=== PATIENT | female | born 1975 | race African-American/Black ===

== ENCOUNTER 2020-11-15 22:52 | Emergency (ER) | payer OTHER ==
[2020-11-15 23:06] VITALS: TEMP 98.4; BMI 44.5
[2020-11-16 00:39] LABS: BASO % 0.8 % (0-2.0); EOS % 2.5 % (0-4.5); HEMATOCRIT 39.8 % (32.4-45.2); LYMPH % 22.6 % (8-40); MCH 25.8 pg (25.7-33.7); MCHC 32.7 g/dl (32.0-36.0); MEAN CELL VOLUME 78.9 fl (80-96); MEAN PLT VOLUME 10.3 fl (7.5-11.1); MONO % 12.7 % (3.8-10.2); NEUT % 61.4 % (42.8-82.8); PLATELET COUNT 188 K/MM3 (134-434); RBC 5.04 M/mm3 (3.60-5.2); RDW 14.4 % (11.6-15.6); WHITE BLOOD COUNT 7.8 K/mm3 (4.0-10.0)
[2020-11-16 00:50] LABS: INR 0.94 (0.83-1.09); PROTHROMBIN TIME (PATIENT) 11.6 SEC (9.7-13.0)
[2020-11-16 00:52] LABS: ACTIVATED PTT 33.6 SECONDS (25.2-36.5)
[2020-11-16 00:54] LABS: CHLORIDE 103 mmol/L (98-107); POTASSIUM 3.7 mmol/L (3.5-5.1); SODIUM 139 mmol/L (136-145)
[2020-11-16 00:57] LABS: ALBUMIN 3.4 g/dl (3.4-5.0); ANION GAP 3 MMOL/L (8-16); BLOOD UREA NITROGEN 28.6 mg/dL (7-18); CALCIUM 9.3 mg/dL (8.5-10.1); CO2 33 mmol/L (21-32); GLUCOSE,RANDOM 105 mg/dL (74-106); MAGNESIUM 2.2 mg/dL (1.8-2.4)
[2020-11-16 01:00] LABS: CREATININE 1.6 mg/dL (0.55-1.3); SGOT/AST 19 U/L (15-37); SGPT/ALT 29 U/L (13-61)
[2020-11-16 01:01] LABS: BILIRUBIN,TOTAL 0.2 mg/dL (0.2-1)
[2020-11-16 01:03] LABS: TOT PROT 6.9 g/dl (6.4-8.2)
[2020-11-16 01:04] LABS: ALK PHOS 73 U/L (45-117)
[2020-11-16 04:03] VITALS: BP 126/84; PULSE 76
== END 2020-11-16 04:03 | disposition home or self-care (01) ==
LOC: JER 22:52
DX: R07.9 Chest pain, unspecified (principal)
CPT/HCPCS: 36415; 71046-TC-FY; 80053; 82550; 82553; 83735; 84484; 85025; 85610; 85730; 93005; 93010; 99285-25

== ENCOUNTER 2021-12-04 15:28 | Emergency (ER) | payer OTHER ==
[2021-12-04 15:38] VITALS: BP 134/87; PULSE 76; TEMP 98; BMI 46.0
[2021-12-04] MEDS ORDERED: ACETAMINOPHEN 500 MG TABLET (FP) PO ONE (18:12)
[2021-12-04] MEDS ORDERED: ACETAMINOPHEN 500 MG TABLET (FP) ONE (18:17)
== END 2021-12-04 19:11 | disposition home or self-care (01) ==
LOC: JERFT 15:28
DX: M79.604 Pain in right leg (principal); M79.605 Pain in left leg; G89.29 Other chronic pain
CPT/HCPCS: 99283-25

== ENCOUNTER 2022-06-02 09:53 | Emergency (ER) | payer OTHER ==
[2022-06-02 10:54] VITALS: BP 126/82; PULSE 87; RESP 18; TEMP 98; BMI 42.9
[2022-06-02] MEDS ORDERED: METOCLOPRAMIDE HCL INJECTION 10 MG/2 ML VIAL IVPB ONE (12:15)
[2022-06-02] MEDS ORDERED: ACETAMINOPHEN 1000 MG/100 ML BAG IVPB ONE (12:15)
[2022-06-02] MEDS ORDERED: SODIUM CHLORIDE 1,000 ML IV STA (12:15)
[2022-06-02] MEDS ORDERED: ACETAMINOPHEN INJECTION 100 ML IVPB ONE (12:26)
[2022-06-02] MEDS ORDERED: METOCLOPRAMIDE HCL INJECTION 10 MG/2 ML VIAL ONE (12:26)
[2022-06-02 13:32] LABS: BASO % 0.7 % (0-2.0); EOS % 1.2 % (0-4.5); HEMATOCRIT 40.2 % (32.4-45.2); HEMOGLOBIN 13.2 GM/dL (10.7-15.3); LYMPH % 22.1 % (8-40); MCH 26.5 pg (25.7-33.7); MCHC 32.9 g/dl (32.0-36.0); MEAN CELL VOLUME 80.5 fl (80-96); MEAN PLT VOLUME 9.9 fl (7.5-11.1); MONO % 8.2 % (3.8-10.2); NEUT % 67.8 % (42.8-82.8); PLATELET COUNT 233 10^3/uL (134-434); RBC 4.99 M/mm3 (3.60-5.2); RDW 13.2 % (11.6-15.6); WHITE BLOOD COUNT 8.3 K/mm3 (4.0-10.0)
[2022-06-02 13:39] LABS: INR 1.03 (0.83-1.09); PROTHROMBIN TIME (PATIENT) 11.8 SEC (9.7-13.0)
[2022-06-02 13:46] LABS: CALCIUM 9.4 mg/dL (8.5-10.1)
[2022-06-02 13:47] LABS: ALBUMIN 3.7 g/dl (3.4-5.0); BLOOD UREA NITROGEN 19.8 mg/dL (7-18)
[2022-06-02 13:50] LABS: CREATININE 1.4 mg/dL (0.55-1.3)
[2022-06-02 13:52] LABS: BILIRUBIN,TOTAL 0.3 mg/dL (0.2-1); TOT PROT 7.2 g/dl (6.4-8.2)
[2022-06-02 15:29] LABS: PH,URINE 5.5 (5.0-8.0); URINE APPEARANCE CLEAR; URINE BILIRUBIN NEGATIVE (NEGATIVE); URINE COLOR YELLOW; URINE GLUCOSE (UA) NEGATIVE (NEGATIVE); URINE KETONE NEGATIVE (NEGATIVE); URINE LEUK ESTERASE NEGATIVE (NEGATIVE); URINE NITRITE NEGATIVE (NEGATIVE); URINE PROTEIN NEGATIVE (NEGATIVE); URINE UROBILINOGEN 0.2 mg/dL (0.2-1.0)
== END 2022-06-02 16:20 | disposition home or self-care (01) ==
LOC: JER 09:53
PROC: 3E033GC Introduction of Other Therapeutic Substance into Peripheral Vein, Percutaneous Approach (ICD-10-PCS; principal; 2022-06-02)
DX: R07.9 Chest pain, unspecified (principal); R51.9 Headache, unspecified
CPT/HCPCS: 0241U-QW; 36415; 70450-TC; 80053; 81003; 84484; 85025; 85610; 87086; 93005; 93010; 99285-25

== ENCOUNTER 2022-06-05 12:04 | Observation (INO) | payer OTHER ==
[2022-06-05] MEDS ORDERED: ACETAMINOPHEN 500 MG TABLET (FP) PO ONE (14:40)
[2022-06-05] MEDS ORDERED: KETOROLAC TROMETHAMINE 30 MG/1 ML VIAL IM ONE (14:43)
[2022-06-05] MEDS ORDERED: PROCHLORPERAZINE INJECTION 10 MG/2 ML VIAL IM ONE (14:43)
[2022-06-05] MEDS ORDERED: DEXAMETHASONE SOD PHOSPHATE 10 MG/1 ML VIAL IM ONE (14:44)
[2022-06-05] MEDS ORDERED: ACETAMINOPHEN 1000 MG/100 ML BAG IVPB ONE (14:58)
[2022-06-05] MEDS ORDERED: DEXAMETHASONE SOD PHOSPHATE 10 MG/1 ML VIAL IVPUSH ONE (14:58)
[2022-06-05] MEDS ORDERED: PROCHLORPERAZINE INJECTION 10 MG/2 ML VIAL IVPB ONE (14:58)
[2022-06-05] MEDS ORDERED: SODIUM CHLORIDE 0.9% 500 ML INFUS.BAG IV ONE (14:58)
[2022-06-05] MEDS ORDERED: KETOROLAC TROMETHAMINE 15 MG/ML VIAL IVPUSH ONE (14:58)
[2022-06-05] MEDS ORDERED: ACETAMINOPHEN INJECTION 100 ML IVPB ONE (16:17)
[2022-06-05] MEDS ORDERED: PROCHLORPERAZINE INJECTION 10 MG/2 ML VIAL ONE (16:17)
[2022-06-05] MEDS ORDERED: DEXAMETHASONE SOD PHOSPHATE 10 MG/1 ML VIAL ONE (16:17)
[2022-06-05] MEDS ORDERED: KETOROLAC TROMETHAMINE 15 MG/ML VIAL ONE (16:18)
[2022-06-05 16:27] LABS: BASO % 0.6 % (0-2.0); EOS % 1.4 % (0-4.5); HEMATOCRIT 39.1 % (32.4-45.2); HEMOGLOBIN 13.1 GM/dL (10.7-15.3); MCH 27.2 pg (25.7-33.7); MCHC 33.7 g/dl (32.0-36.0); MEAN CELL VOLUME 80.8 fl (80-96); MEAN PLT VOLUME 9.6 fl (7.5-11.1); MONO % 10.4 % (3.8-10.2); NEUT % 56.6 % (42.8-82.8); PLATELET COUNT 225 10^3/uL (134-434); RBC 4.83 M/mm3 (3.60-5.2); RDW 13.4 % (11.6-15.6); WHITE BLOOD COUNT 7.3 K/mm3 (4.0-10.0)
[2022-06-05 16:45] LABS: CALCIUM 9.3 mg/dL (8.5-10.1)
[2022-06-05 16:47] LABS: ALBUMIN 3.6 g/dl (3.4-5.0); BLOOD UREA NITROGEN 17.8 mg/dL (7-18)
[2022-06-05 16:50] LABS: CREATININE 1.4 mg/dL (0.55-1.3)
[2022-06-05 16:51] LABS: BILIRUBIN,TOTAL 0.3 mg/dL (0.2-1); TOT PROT 6.9 g/dl (6.4-8.2)
[2022-06-05] MEDS ORDERED: METOCLOPRAMIDE HCL INJECTION 10 MG/2 ML VIAL IVPB ONE (19:58)
[2022-06-05] MEDS ORDERED: MAGNESIUM 1GM/D5W - 1 GM/100 ML IVPB IVPB ONE (20:06)
[2022-06-05] MEDS ORDERED: METOCLOPRAMIDE HCL INJECTION 10 MG/2 ML VIAL ONE (20:06)
[2022-06-05] MEDS ORDERED: ACETAMINOPHEN 1000 MG/100 ML BAG IVPB PRN (22:14)
[2022-06-05] MEDS ORDERED: ACETAMINOPHEN/CAFFEINE/BUTALBITAL 1 TAB PO PRN (22:28)
[2022-06-05] MEDS ORDERED: POTASSIUM CHLORIDE ORAL LIQUID 20 MEQ/15 ML PO ONE (22:33)
[2022-06-05] MEDS ORDERED: POTASSIUM CHLORIDE TABS 10 MEQ TABLET.ER (FP) ONE (22:41)
[2022-06-05] MEDS ORDERED: KCL 10 MEQ IVPB 10 MEQ/100 ML INFUS.BAG IVPB ONE (22:42)
[2022-06-05] MEDS ORDERED: KCL 10 MEQ IVPB 10 MEQ/100 ML INFUS.BAG IVPB SCH (22:45)
[2022-06-06 02:16] LABS: URINE APPEARANCE CLEAR; URINE BILIRUBIN NEGATIVE (NEGATIVE); URINE COLOR YELLOW; URINE GLUCOSE (UA) NEGATIVE (NEGATIVE); URINE KETONE NEGATIVE (NEGATIVE); URINE LEUK ESTERASE NEGATIVE (NEGATIVE); URINE NITRITE NEGATIVE (NEGATIVE); URINE PROTEIN NEGATIVE (NEGATIVE); URINE UROBILINOGEN 0.2 mg/dL (0.2-1.0)
[2022-06-06] MEDS: HEPARIN NA (PORCINE) 5,000 UNITS/ML 1ML VIAL SQ SCH ×2 (06:14→16:01)
[2022-06-06 09:03] VITALS: PULSE 18
[2022-06-06 10:30] LABS: BASO % 0.4 % (0-2.0); HEMATOCRIT 38.9 % (32.4-45.2); HEMOGLOBIN 12.8 GM/dL (10.7-15.3); LYMPH % 13.9 % (8-40); MCH 26.9 pg (25.7-33.7); MEAN CELL VOLUME 81.7 fl (80-96); MONO % 4.5 % (3.8-10.2); NEUT % 81.2 % (42.8-82.8); PLATELET COUNT 233 10^3/uL (134-434); RBC 4.76 M/mm3 (3.60-5.2); RDW 12.8 % (11.6-15.6); WHITE BLOOD COUNT 12.5 K/mm3 (4.0-10.0)
[2022-06-06 10:34] LABS: INR 1.03 (0.83-1.09); PROTHROMBIN TIME (PATIENT) 11.8 SEC (9.7-13.0)
[2022-06-06 10:37] LABS: ACTIVATED PTT 36.8 SECONDS (25.2-36.5)
[2022-06-06 10:53] LABS: ALBUMIN 3.5 g/dl (3.4-5.0); BLOOD UREA NITROGEN 20.7 mg/dL (7-18); CALCIUM 9.3 mg/dL (8.5-10.1)
[2022-06-06 10:57] LABS: CREATININE 1.5 mg/dL (0.55-1.3); PHOSPHOROUS 2.3 mg/dL (2.5-4.9)
[2022-06-06 10:58] LABS: BILIRUBIN,TOTAL 0.4 mg/dL (0.2-1); TOT PROT 6.7 g/dl (6.4-8.2)
[2022-06-06 15:47] VITALS: BP 122/75; RESP 18; TEMP 97.5
== END 2022-06-06 17:22 | disposition home or self-care (01) ==
LOC: JER 12:04 → JERBED 21:42 → J5S 06-06 00:37
PROVIDERS: ADMIT Internal Medicine; ATTEND Internal Medicine
PROC: 3E033NZ Introduction of Analgesics, Hypnotics, Sedatives into Peripheral Vein, Percutaneous Approach (ICD-10-PCS; principal; 2022-06-05)
PROC: 3E033GC Introduction of Other Therapeutic Substance into Peripheral Vein, Percutaneous Approach (ICD-10-PCS; 2022-06-05)
PROC: 3E0333Z Introduction of Anti-inflammatory into Peripheral Vein, Percutaneous Approach (ICD-10-PCS; 2022-06-05)
DX: G43.909 Migraine, unspecified, not intractable, without status migrainosus (principal); M79.10 Myalgia, unspecified site; J45.909 Unspecified asthma, uncomplicated; G25.81 Restless legs syndrome; H53.149 Visual discomfort, unspecified; N18.9 Chronic kidney disease, unspecified
CPT/HCPCS: 0241U-QW; 36415; 70496-TC; 80053; 81003; 83735; 84100; 84443; 84484; 84703; 85025; 85379; 85610; 85730; 93005; 93010; 93971-TC; 99285-25; G0378; J1100

== ENCOUNTER 2023-09-26 03:00 | Emergency (ER) | payer OTHER ==
[2023-09-26 03:12] VITALS: BP 167/103; PULSE 72; RESP 18; TEMP 97.7; BMI 41.5
[2023-09-26] MEDS ORDERED: FAMOTIDINE 20 MG/50 ML IVPB 20 MG/50 ML MG IVPB ONE (03:55)
[2023-09-26] MEDS ORDERED: ACETAMINOPHEN INJECTION 100 ML IVPB ONE (03:55)
[2023-09-26] MEDS ORDERED: ONDANSETRON 4 MG/2 ML VIAL ONE (03:56)
[2023-09-26 04:02] LABS: BASO % 0.9 % (0-2.0); EOS % 1.4 % (0-4.5); HEMATOCRIT 44.1 % (32.4-45.2); HEMOGLOBIN 14.7 GM/dL (10.7-15.3); LYMPH % 40.2 % (8-40); MCH 26.7 pg (25.7-33.7); MCHC 33.3 g/dl (32.0-36.0); MEAN CELL VOLUME 80.3 fl (80-96); MEAN PLT VOLUME 10.4 fl (7.5-11.1); MONO % 16.3 % (3.8-10.2); NEUT % 41.2 % (42.8-82.8); PLATELET COUNT 171 10^3/uL (134-434); RBC 5.49 M/mm3 (3.60-5.2); RDW 14.5 % (11.6-15.6); WHITE BLOOD COUNT 4.7 K/mm3 (4.0-10.0)
[2023-09-26] MEDS: ACETAMINOPHEN 1000 MG/100 ML BAG IVPB ONE (04:13)
[2023-09-26] MEDS: FAMOTIDINE 20 MG/50 ML IVPB 20 MG/50 ML MG IVPB ONE (04:19)
[2023-09-26 04:20] LABS: POTASSIUM 4.2 mmol/L (3.5-5.1)
[2023-09-26 04:23] LABS: BLOOD UREA NITROGEN 15.8 mg/dL (7-18); CALCIUM 9.6 mg/dL (8.5-10.1); MAGNESIUM 1.9 mg/dL (1.8-2.4)
[2023-09-26] MEDS: ONDANSETRON 4 MG/2 ML VIAL IVPUSH ONE (04:23)
[2023-09-26] MEDS: SODIUM CHLORIDE 0.9% 500 ML INFUS.BAG IV ONE (04:23)
[2023-09-26 04:24] LABS: ALBUMIN 3.7 g/dl (3.4-5.0)
[2023-09-26 04:26] LABS: CREATININE 1.1 mg/dL (0.55-1.3)
[2023-09-26 04:28] LABS: BILIRUBIN,TOTAL 0.4 mg/dL (0.2-1); TOT PROT 7.4 g/dl (6.4-8.2)
== END 2023-09-26 04:47 | disposition home or self-care (01) ==
LOC: JER 03:00
PROC: 3E033GC Introduction of Other Therapeutic Substance into Peripheral Vein, Percutaneous Approach (ICD-10-PCS; principal; 2023-09-26)
PROC: 3E033GC Introduction of Other Therapeutic Substance into Peripheral Vein, Percutaneous Approach (ICD-10-PCS; 2023-09-26)
PROC: 3E033GC Introduction of Other Therapeutic Substance into Peripheral Vein, Percutaneous Approach (ICD-10-PCS; 2023-09-26)
DX: R11.2 Nausea with vomiting, unspecified (principal); J10.1 Influenza due to other identified influenza virus with other respiratory manifestations; Z20.822 Contact with and (suspected) exposure to COVID-19
CPT/HCPCS: 0241U-QW; 36415; 80053; 83690; 83735; 84703; 85025; 99284-25; J0131